=== PATIENT | male | born 1970 | race Caucasian/White ===

== ENCOUNTER 2025-05-04 08:48 | Emergency (ER) | payer SELFPAY ==
[2025-05-04 08:52] VITALS: BP 174/110; PULSE 71; TEMP 36.9; O2SAT 100; BMI 30.1
[2025-05-04] MEDS: HYDROCODONE/ACET 5-325 MG TABLET 1 TAB PO (09:18)
[2025-05-04] MEDS: IBUPROFEN 600 MG TABLET PO (09:18)
--- NOTE | 2025-05-04 09:25 | ED_ITS ---
HPI HPI - General Adult General Chief complaint: Extremity Injury, Lower Stated complaint: R LEG PAIN Time Seen by Provider: 05/04/25 08:51 Source: patient and family Mode of arrival: Wheelchair Limitations: no limitations History of Present Illness HPI narrative: Patient is a 54-year-old male, healthy with no chronic medical conditions, presenting to the emergency department for evaluation of right knee pain. The patient states that last night while he was trying to sleep, he started experiencing sharp pain in the right knee. He states it is located towards the front of the knee with some radiation to the back of the knee. States he might have a history of arthritis, but he is unsure. He denies any injury to the area. States he had a long day at work a couple days ago, was on his feet for 9 straight hours and believes this may have contributed to his pain. No surgeries to the area. No recent procedures to the knee. No numbness/tingling/weakness in the right lower extremity. He denies any back pain. No bladder or bowel issues. No history of cancer. No recent immobilizations or surgeries. No history of DVT/PE. Related Data Allergies Allergy/AdvReac Type Severity Reaction Status Date / Time No Known Drug Allergies Allergy Verified 05/04/25 08:51 Opioid HPI Opioid Management Most Recent Opioid Data: Last Pain Scale 7 Today, 09:18 Last MAR Pain Assessment Today, 09:18 Review of Systems ROS Status of ROS 10 or more systems reviewed and unremark able except as noted in history and below PFSH PFSH Social History Little interest or pleasure in doing things: not at all Feeling down, depressed, or hopeless: not at all Exam Narrative Exam Narrative: CONSTITUTIONAL: Well-appearing, answering questions and following commands appropriately SKIN: Was warm and dry. EYES: Sclerae white. EARS, NOSE, THROAT: Moist oral mucosa. RESPIRATORY: Nonlabored respiration CARDIOVASCULAR: Normal rate and regular rhythm. 2+ DP pulse on the right. GASTROINTESTINAL: Abdomen is nondistended. MUSCULOSKELETAL: There is tenderness to palpation and a small joint effusion throughout the right anterior, midline knee. There is full range of motion in the right knee. The knee joint is stable through ligamentous testing including anterior/posterior drawer and varus/valgus stress test. Able to ambulate with a normal gait. There is no overlying erythema/induration/drainage/or other infectious changes. NEUROLOGIC: Patient is awake and alert. Equal strength and sensation to light touch in the bilateral lower extremities. Constitutional Vital Signs, click to edit/add: Last Vital Signs Temp 98.4 F 05/04/25 08:52 Pulse 71 05/04/25 08:52 Resp 18 05/04/25 08:52 BP 174/110 H 05/04/25 08:52 Pulse Ox 100 05/04/25 08:52 O2 Del Method Room Air 05/04/25 08:52 Course Vital Signs Vital signs: Vital Signs Temperature 98.4 F 05/04/25 08:52 Pulse Rate 71 05/04/25 08:52 Respiratory Rate 18 05/04/25 08:52 Blood Pressure 174/110 H 05/04/25 08:52 Pulse Oximetry 100 05/04/25 08:52 Oxygen Delivery Method Room Air 05/04/25 08:52 Temperature 98.4 F 05/04/25 08:52 Pulse Rate 71 05/04/25 08:52 Respiratory Rate 18 05/04/25 08:52 Blood Pressure 174/110 H 05/04/25 08:52 Pulse Oximetry 100 05/04/25 08:52 Oxygen Delivery Method Room Air 05/04/25 08:52 Medical Decision Making MDM Narrative Medical decision making narrative: Patient is a 54-year-old male presenting to the emergency department for evaluation of atraumatic right knee pain that began last night while he was trying to sleep. His vital signs on arrival were significant for hypertension, otherwise were within normal limits. He is afebrile and hemodynamically stable. Examination of the right knee revealed a small anterior joint effusion. The extremity is neurovascularly intact with full range of motion. Patient's presentation is consistent with right-sided knee effusion, likely reactive and secondary to underlying arthritis. He was more active than usual over the last 2 days, which likely explains his symptoms. He has no prior surgeries or procedures to the knee, and there are no infectious changes - low concern for septic arthritis or gout. No injuries to suggest fracture or liga mentous/meniscal injury. I have low concern for DVT clinically, and using the Wells Criteria for DVT, he has a score of 0 putting him at low risk. He was given oral [place] and Motrin for pain. No echocardiography available today. However, on my POCUS DVT scan, there is no evidence of acute DVT using 3 point compression test. There was a small joint effusion appreciated on ultrasound. No cobblestoning. I do believe the patient is stable for discharge. Patient's presentation is most likely consistent with musculoskeletal joint pain/reactive effusion/osteoarthritis. They were instructed to follow up with his PCP in [place] for further care. Return precautions were given including any new or worsening symptoms. RICE precautions were given. I recommended NSAIDs for pain relief. Patient understands and agrees to the plan. FINAL IMPRESSION: #Acute right knee pain and effusion DISPOSITION: Discharged home CONDITION: Good Discharge Plan Discharge Chief Complaint: Extremity Injury, Lower Clinical Impression: Acute pain of right knee, Effusion of knee Patient Disposition: Home, Self-Care Time of Disposition Decision: 09:26 Condition: Good Mode of Transportation: Private Vehicle Print Language: [place] Instructions: Swollen Knee Joint (ED), Knee Pain (ED)
--- OUTSIDE RECORDS SUMMARY | 2025-05-04 09:31 | XMS_ITS | Patient Health Record ---
Author [facility] Address [address], [place] [id number] Support Name Relationship Address Phone Unavailable Emergency Contact Unknown Sully Olvera Guarantor Unknown [phone] Reason For Referral No Information Problems Problem Type SNOMED Code ICD Code Onset Dates Problem Status W/U Status Risk Notes Problem Pain in thoracic spi ne (963706887) Pain in thoracic spine (724.1) 11/28/2009 Active confirmed (Ezra)ProblemCervicalgia (30706486)Cervicalgia (723.1)11/28/2009ctiveconfirmed (Ezra)ProblemSomatic dysfunction of cervical region (579937280)Nonallopathic lesion of cervical region, not elsewhere classified (739.1)11/28/2009ctive confirmed(Ezra)ProblemSomatic dysfunction of thoracic region (142749506) Nonallopathic lesion of thoracic region, not elsewhere classified (739.2) 11/28/2009ctiveconfirmed(Ezra) Plan Of Treatment No Information Insurance Providers Payer Name Payer Address Payer Phone Subscriber Number Group Number Insured Name Patient Relationship to Insured Coverage Start Date Coverage End Date [id number] [address] [place] [address] [id number] Sully Olvera Self - patient is the insured
--- OUTSIDE RECORDS SUMMARY | 2025-05-04 09:31 | XMS_ITS | Clinical Summary ---
Author Organization [facility] r [place] [address] Care Team Providers Care Switcher Name Role Phone Tomy Conn MD, Jerrod Roberts Primary Care Provider Allergies No known active allergies Medications MedicationSigDispense QuantityRefillsLast FilledStart DateEnd DateStatus lisinopril (PRINIVIL,ZESTRIL) 10 mg tablet Take 10 mg by mouth daily.Active traMADol (ULTRAM) 50 mg tablet Take 50 mg by mouth every 6 (six) hours as needed for Pain.Active predniSONE (DELTASONE) 10 mg tablet Take 2 tablets by mouth daily. 14 tablet ctive diazepam (VALIUM) 5 mg tablet Take 1 tablet by mouth every 6 (six) hours as needed. 30 tablet ctive fluticasone propionate (Flonase) 50 mcg/actuation nasal spray Indications:Sinusitis, unspecified chronicity, unspecified locationUse as directed 1 spray in the nose in the morning. 16 g ctive artificial tears (Akwa Tears) 1.4 % ophthalmic solution Place 1 drop into both eyes 3 (three) times daily as needed 15 mL ctive Active Problems No known active problems Encounters DateTypeDepartmentCare YrsvBfkdsmaodyp91/25/2014PCP/Clinic Changefrom Last 3 Months Social History Tobacco UseTypesPacks/DayYears UsedDateSmoking Tobacco: Every DayCigarettes Alcohol UseStandard Drinks/WeekCommentsYes0 (1 standard drink = 0.6 oz pure alcohol)Substance UseTypesUse/WeekCommentsNoSex and Gender InformationValueDate RecordedSex Assigned at BirthNot on fileLegal WziJlwx3811/06/2012 5:19 AM EDT Gender IdentityNot on fileSexual OrientationNot on file Last Filed Vital Signs Vital SignReadingTime TakenCommentsBlood Nnqjujve804/8604 12:06 PM EDT Ddsob2760 12:06 PM NGNVficnxupcdq79.7 ??C (98 ??F)09/01/2022 12:06 PM EDTRespiratory Nhxq742007/30/2013 1:00 PM EDTOxygen Llbndvmtca61%09/01/2022 12:06 PM EDTInhaled Oxygen Concentration--Euczuh66.2 kg (212 lb 1.6 oz)09/01/2022 12:06 PM FQKNommki888.1 cm (5' 10.5 )09/01/2022 12:06 PM EDTBody Mass Index30 09/01/2022 12:06 PM EDT Plan of Treatment NameTypePriorityAssociated DiagnosesOrder ScheduleCBC And DifferentialLabRoutine Preventative health care 1 Occurrences starting 09/01/2022 until 09/02/2023omprehensive Metabolic Panel (OCMPAN)LabRoutine Preventative health care 1 Occurrences starting 09/01/2022 until 09/02/2023Lipid PanelLabRoutine Preventative health care 1 Occurrences starting 09/01/2022 until 09/02/2023TSH (REFL) (QUEST)LabRoutine Preventative health care 1 Occurrences starting 09/01/2022 until 09/02/2023Vitamin D 25 HydroxyLabRoutine Vitamin D deficiency 1 Occurrences starting 09/01/2022 until 4PSA, Total (QUEST)LabRoutine Preventative health care 1 Occurrences starting 09/01/2022 until 09/02/2023Hemoglobin D5HZidOzamycc Preventative health care 1 Occurrences starting 09/01/2022 until 09/02/2023Testosterone, TotalLabRoutine Preventative health care 1 Occurrences starting 09/01/2022 until 09/02/2023Testosterone, TotalLabRoutine Preventative health care Fatigue, Unspecified Type 1 Occurrences starting 09/21/2021 until 09/21/2022NameTypePriorityAssociated DiagnosesOrder ScheduleColonoscopyOutpatient ReferralRoutine Annual physical exam Ordered: 09/30/2021mbulatory Referral to Sleep Studies Sleep Study (Polysomnogram) and CPAP if necessaryOutpatient ReferralRoutine Sleep apnea, unspecified type Ordered: 09/30/2021Health MaintenanceDue DateLast DoneCommentsCT Colonography 1970Cologuard (FIT-DNA)1970FIT1970FOBT1970Sigmoidoscopy 1970MMR Vaccines (1 of 1 - Standard series)07/21/1971COVID-19 Vaccine (#1) 07/21/1975Tobacco Cessation Lzsxhepwgl53/15/1983Hepatitis B Vaccination (1 of 3 - 19+ 3-dose series)1989Pneumococcal Immunization 50 and Older (1 of 2 - PCV)1989Zoster Vaccines (1 of 2)1989Blood Pressure Check1990 Eye Exam07/20/20100198Gimpwndtime88/15/2016Colorectal Cancer Djauytbbu86/15/2016 Shield Colorectal Cancer Screening (Blood Test)07/21/2015RSV Immunization 60+ or (1 - Risk 50-74 years 1-dose series)1Lipid Disorder Screening /Yearly Physical/Wellness Exam/2Depression Yvprcu36/Influenza Vaccine (#1)2025HIB VaccinesAged OutNo longer eligible based on patient's age to complete this topicHPV VaccineAged Out No longer eligible based on patient's age to complete this topicHepatitis A VaccinesAged OutNo longer eligible based on patient's age to complete this topic IPV VaccinesAged OutNo longer eligible based on patient's age to complete this topic Procedures Procedure NamePriorityDate/TimeAssociated DiagnosisCommentsLIPID PANELRoutine 09/21/2021 1:27 PM EDT Preventative health care Fatigue, unspecified type from Last 3 Months or Most Recently Relevant to Health Maintenance Results * (ABNORMAL) Lipid Panel (09/21/2021 1:27 PM EDT)ComponentValueRef RangeTest MethodAnalysis TimePerformed AtPathologist SignatureCholesterol, Adiiq342(H) <200 mg/dLQUEST Jiff SHANELLE ALVARADOEHDL Gqjpesntdvh95(L)> OR = 40 mg/dLQUEST Certify ZKVIHydotyythgbty590(H)<150 mg/dLQUEST Jiff SHANELLE ALVARADOE Comment: If a non-fasting specimen was collected, consider repeat triglyceride testing on a fasting specimen if clinically indicated. Hannah et al. J. of Clin. Lipidol. 2015;9:129-169. There is increased risk of pancreatitis when the triglyceride concentration is very high (> or = 500 mg/dL, especially if > or = 1000 mg/dL). Hannha et al. J. of Clin. Lipidol. 2015;9:129-169. LDL Cholesterolmg/dL (calc)[employer] [facility] [facility] CHRISTIANOEComment: LDL cholesterol not calculated. Triglyceride levels greater than 400 mg/dL invalidate calculated LDL results. Reference range: <100 Desirable range <100 mg/dL for primary prevention; <70 mg/dL for patients with CHD or diabetic patients with > or = 2 CHD risk factors. LDL-C is now calculated using the Reinaldo-Angela calculation, which is a validated novel method providing better accuracy than the Friedewald equation in the estimation of LDL-C. Reinaldo SS et al. DIAMOND. 2013;310(19): 1060-0512 (http://education.Snyppit/faq/JLN176) Chol/Hdlc Ratio7.6(H)<5.0 (calc)[facility] SHANELLE ALVARADOENon Hdl Cholesterol 178(H)<130 mg/dL (calc)[employer] SHANELLE ALVARADOEComment: For patients with diabetes plus 1 major ASCVD risk factor, treating to a non-HDL-C goal of <100 mg/dL (LDL-C of <70 mg/dL) is considered a therapeutic option. Specimen (Source)Anatomical Location / LateralityCollection Method / Volume Collection TimeReceived TimeBloodBLOOD SPECIMEN / Auhelsc7809/21/2021 1:27 PM EDT 09/21/2021 1:27 PM EDT Narrative [facility] - 09/24/2021 1:30 PM EDT FASTING:YES FASTING: YES Resulting Agency Comment Performing Organization Information: ?Site ID: ?Name: [facility] ?Address: [address] [place] [address] [place] [address] ?Director: Hans Philippe M.D. Authorizing ProviderResult TypeResult Sabrina Dobson MDLAB BLOOD ORDERABLES Final ResultPerforming OrganizationAddressCity/State/ZIP CodePhone Number [facility] [address] [place] [address] [facility] SHANELLE FLORES from Last 3 Months or Most Recently Relevant to Health Maintenance Insurance Care Teams Team MemberRelationshipSpecialtyStart DateEnd Date Jerrod Huitron Jr., MD [address] [place] [address] [facility]
[2025-05-04 09:42] VITALS: BP 153/110; PULSE 74; O2SAT 97
== END 2025-05-04 09:44 | disposition home or self-care (01) ==
LOC: ER 09:28
PROVIDERS: Emergency Provider Student in an Organized Health Care Education/Training Program
DX: M25.461 Effusion, right knee (principal)
CPT/HCPCS: 99282